=== PATIENT | female | born 1960 | race Caucasian/White ===

== ENCOUNTER 2020-05-16 12:17 | Inpatient (IN) ==
[2020-05-16] MEDS ORDERED: Naloxone 0.4 MG/ML INJ IVP PRN (15:51)
[2020-05-16] MEDS ORDERED: Ondansetron 4 MG/2 ML VIAL IVP PRN (15:51)
[2020-05-16] MEDS ORDERED: Isovue-370 500 ML BOTTLE IVP ONE (15:54)
[2020-05-16 17:19] LABS: Adenovirus Not Detected (Not Detect); Bordetella Pertussis Not Detected (Not Detect); Chlamydophila pneumoniae Not Detected (Not Detect); Coronavirus 229E Not Detected (Not Detect); Coronavirus HKU1 Not Detected (Not Detect); Coronavirus NL63 Not Detected (Not Detect); Coronavirus OC43 Not Detected (Not Detect); Human Metapneumovirus Not Detected (Not Detect); Human Rhinovirus/Enterovirus Not Detected (Not Detect); Influenza A Subtype 2009 H1 Not Detected (Not Detect); Influenza B Not Detected (Not Detect); Mycoplasma pneumoniae Not Detected (Not Detect); Parainfluenza Virus 1 Not Detected (Not Detect); Parainfluenza Virus 2 Not Detected (Not Detect); Parainfluenza Virus 3 Not Detected (Not Detect); Parainfluenza Virus 4 Not Detected (Not Detect); Respiratory Syncytial Virus Not Detected (Not Detect); SARS-CoV-2 Not Detected (Not Detect)
[2020-05-16] MEDS: *HR* Heparin 5,000 UNIT/ML VIAL SQ SCH (17:58)
[2020-05-16] MEDS: Piperacillin/Tazobactam 3.375 GM in 0.9 % Sodium Chloride Mini Bag 100 ML IVPB SCH ×2 (17:59→23:38)
[2020-05-16] MEDS: 0.9 % Sodium Chloride 1,000 ML IVC SCH (18:00)
[2020-05-16] MEDS: Vancomycin 1,250 MG/262.5 ML IV.SOLN IVPB SCH (18:11)
[2020-05-16] MEDS: Acetaminophen 325 MG TABLET PO PRN (19:57)
[2020-05-17 02:27] LABS: Basophils % 0.5 %; Hematocrit 40.6 % (35.3-44.9); Immature Granulocytes % 1.6 % (0-4); Lymphocytes # 0.5 K/mcL (0.6-4.6); Mean Corpuscular Hemoglobin 28.1 pg (28.0-33.3); Mean Corpuscular Volume 87.9 fL (83.0-100.0); Mean Platelet Volume 10.7 fL (9.4-12.4); Monocytes # 0.1 K/mcL (0.0-1.3); Monocytes % 2.7 %; Neutrophils # 3.1 K/mcL (1.6-8.9); Platelet Count 273 K/mcL (140-400); Red Blood Count 4.62 M/mcL (3.82-4.97); Red Cell Distribution Width 14.5 % (11.5-14.5); Segmented Neutrophils % 82.2 %; White Blood Count 3.8 K/mcL (4.3-11.1)
[2020-05-17 02:46] LABS: BUN/Creatinine Ratio 20 (6-26); Blood Urea Nitrogen 11 mg/dL (6-20); Calcium 8.1 mg/dL (8.6-10.3); Carbon Dioxide 22 mEq/L (23-29); Chloride 108 mEq/L (98-107); Glucose 170 mg/dL (70-105); Osmolality,Calculated 289 (280-300); Phosphorous 1.9 mg/dL (2.7-4.5); Potassium 3.9 mEq/L (3.5-5.1); Sodium 138 mEq/L (136-145); eGFR For African Americans > 60 (> 60); eGFR For Non-African Americans > 60 (> 60)
[2020-05-17] MEDS ORDERED: Benzonatate 100 MG CAPSULE PO ONE (03:00)
[2020-05-17] MEDS: Vancomycin 1,250 MG/262.5 ML IV.SOLN IVPB SCH ×2 (04:49→16:31)
[2020-05-17] MEDS: 0.9 % Sodium Chloride 1,000 ML IVC SCH (04:49)
[2020-05-17] MEDS: *HR* Heparin 5,000 UNIT/ML VIAL SQ SCH ×2 (04:50→16:24)
[2020-05-17] MEDS: lisinopriL 10 MG TABLET PO SCH (07:55)
[2020-05-17] MEDS ORDERED: Azithromycin 500 MG in 0.9 % Sodium Chloride 250 ML IVPB SCH (09:00)
[2020-05-17] MEDS: Acetaminophen 325 MG TABLET PO PRN ×2 (09:42→18:16)
[2020-05-17] MEDS: Piperacillin/Tazobactam 3.375 GM in 0.9 % Sodium Chloride Mini Bag 100 ML IVPB SCH ×2 (09:44→16:23)
[2020-05-17 10:23] LABS: INR 1.1; Prothrombin Time 12.6 Seconds (9.4-12.1)
[2020-05-17 10:26] LABS: Activated Partial Thrombo Time 25.5 Seconds (26.0-36.0)
[2020-05-17 10:33] LABS: C-Reactive Protein 111 mg/L (Less than 10); Lactate Dehydrogenase 250 Units/L (140-271)
[2020-05-17 10:52] LABS: Ferritin 698 ng/mL (10-120)
[2020-05-17] MEDS ORDERED: Dexamethasone 4 MG/ML VIAL IVP SCH (11:15)
[2020-05-17] MEDS: Furosemide 40 MG/4 ML VIAL IVP SCH (12:53)
[2020-05-17 15:15] LABS: ABG Base Excess 2 mEq/L (-2 to 3); ABG HCO3 24 mEq/L (21-27); ABG Oxygen Saturation 88 % (95-98); ABG PCO2 29 mmHg (35-45); ABG PH 7.52 pH Units (7.32-7.45); ABG PO2 48 mmHg (85-104); ABG TCO2 25 mEq/L (20-26)
[2020-05-17] MEDS: Ipratropium 1 PUFF INHALER IH SCH ×2 (15:33→22:14)
[2020-05-17 16:03] LABS: Bilirubin,Urine Negative (Negative); Blood,Urine Small (Negative); Clarity,Urine Clear (Clear); Color,Urine Light-Yellow (Yellow); Glucose,Urine (UA) Normal (Normal); Ketones,Urine Negative (Negative); Leukocyte Esterase,Urine Negative (Negative); Mucus,Urine Few per lpf (None-Few); Nitrite,Urine Negative (Negative); PH,Urine 6.5 pH Units (5.0-8.0); Protein,Urine 70 mg/dL (Neg-Trace); RBC,Urine 0-3 per hpf (0-3); Squamous Epithelial Cell,Urine Few per hpf (None-Few); Urobilinogen,Urine Normal (Normal); WBC,Urine 0-3 per hpf (0-3)
[2020-05-17] MEDS ORDERED: Furosemide 20 MG/2 ML VIAL IVP ONE (21:00)
[2020-05-18] MEDS: Piperacillin/Tazobactam 3.375 GM in 0.9 % Sodium Chloride Mini Bag 100 ML IVPB SCH (00:17)
[2020-05-18] MEDS: Acetaminophen 325 MG TABLET PO PRN ×2 (00:56→20:39)
[2020-05-18] MEDS: Ipratropium 1 PUFF INHALER IH SCH ×4 (03:47→22:23)
[2020-05-18] MEDS ORDERED: 0.9 % Sodium Chloride 250 ML ONE (05:11)
[2020-05-18] MEDS: *HR* Heparin 5,000 UNIT/ML VIAL SQ SCH (05:31)
[2020-05-18 07:13] LABS: Hematocrit 41.8 % (35.3-44.9); Hemoglobin 13.2 g/dL (11.5-15.4); Mean Corpuscular HGB Conc 31.6 g/dL (31.6-35.5); Mean Corpuscular Hemoglobin 27.8 pg (28.0-33.3); Mean Platelet Volume 10.5 fL (9.4-12.4); Platelet Count 335 K/mcL (140-400); Red Blood Count 4.75 M/mcL (3.82-4.97); Red Cell Distribution Width 14.4 % (11.5-14.5)
[2020-05-18 07:20] LABS: BUN/Creatinine Ratio 22 (6-26); Blood Urea Nitrogen 16 mg/dL (6-20); Calcium 8.5 mg/dL (8.6-10.3); Carbon Dioxide 27 mEq/L (23-29); Chloride 103 mEq/L (98-107); Glucose 167 mg/dL (70-105); Osmolality,Calculated 293 (280-300); Phosphorous 2.2 mg/dL (2.7-4.5); Potassium 3.1 mEq/L (3.5-5.1); Sodium 139 mEq/L (136-145); eGFR For African Americans > 60 (> 60); eGFR For Non-African Americans > 60 (> 60)
[2020-05-18 07:30] LABS: White Blood Count 8.3 K/mcL (4.3-11.1)
[2020-05-18] MEDS: lisinopriL 10 MG TABLET PO SCH (08:04)
[2020-05-18] MEDS: Azithromycin 250 MG TABLET PO SCH (08:05)
[2020-05-18] MEDS: Dexamethasone 4 MG/ML VIAL IVP SCH ×2 (08:06→20:09)
[2020-05-18] MEDS: Furosemide 40 MG/4 ML VIAL IVP SCH (08:10)
[2020-05-18] MEDS ORDERED: *HR* Enoxaparin 40 MG/0.4 ML SYRINGE SQ ONE (18:00)
[2020-05-19] MEDS: Ipratropium 1 PUFF INHALER IH SCH ×4 (03:49→21:39)
[2020-05-19] MEDS: Furosemide 40 MG/4 ML VIAL IVP SCH (09:35)
[2020-05-19] MEDS: Dexamethasone 4 MG/ML VIAL IVP SCH ×2 (09:35→21:04)
[2020-05-19] MEDS: Azithromycin 250 MG TABLET PO SCH (09:35)
[2020-05-19] MEDS: lisinopriL 10 MG TABLET PO SCH (09:35)
[2020-05-19 10:44] LABS: BUN/Creatinine Ratio 36 (6-26); Blood Urea Nitrogen 22 mg/dL (6-20); Calcium 9.1 mg/dL (8.6-10.3); Carbon Dioxide 26 mEq/L (23-29); Chloride 104 mEq/L (98-107); Glucose 266 mg/dL (70-105); Osmolality,Calculated 299 (280-300); Potassium 3.7 mEq/L (3.5-5.1); Sodium 138 mEq/L (136-145); eGFR For African Americans > 60 (> 60); eGFR For Non-African Americans > 60 (> 60)
[2020-05-19] MEDS: Acetaminophen 325 MG TABLET PO PRN (17:34)
[2020-05-19] MEDS ORDERED: *HR* Enoxaparin 40 MG/0.4 ML SYRINGE SQ SCH (18:00)
[2020-05-19] MEDS ORDERED: Furosemide 20 MG/2 ML VIAL IVP ONE (19:00)
[2020-05-19 21:45] LABS: SARS-CoV-2 by NAA DETECTED (Not Detect)
[2020-05-20] MEDS: Ipratropium 1 PUFF INHALER IH SCH ×4 (03:57→21:54)
[2020-05-20 06:15] LABS: INR 1.1; Prothrombin Time 12.5 Seconds (9.4-12.1)
[2020-05-20 06:26] LABS: BUN/Creatinine Ratio 43 (6-26); Blood Urea Nitrogen 30 mg/dL (6-20); Calcium 9.4 mg/dL (8.6-10.3); Carbon Dioxide 27 mEq/L (23-29); Chloride 103 mEq/L (98-107); Glucose 205 mg/dL (70-105); Lactate Dehydrogenase 287 Units/L (140-271); Magnesium 2.3 mg/dL (1.6-2.6); Osmolality,Calculated 304 (280-300); Potassium 3.9 mEq/L (3.5-5.1); Sodium 141 mEq/L (136-145); eGFR For African Americans > 60 (> 60); eGFR For Non-African Americans > 60 (> 60)
[2020-05-20 06:40] LABS: Ferritin 839 ng/mL (10-120)
[2020-05-20 07:39] LABS: Hematocrit 44.5 % (35.3-44.9); Hemoglobin 14.1 g/dL (11.5-15.4); Mean Corpuscular HGB Conc 31.7 g/dL (31.6-35.5); Mean Corpuscular Hemoglobin 27.8 pg (28.0-33.3); Mean Corpuscular Volume 87.8 fL (83.0-100.0); Mean Platelet Volume 10.9 fL (9.4-12.4); Platelet Count 411 K/mcL (140-400); Red Blood Count 5.07 M/mcL (3.82-4.97); Red Cell Distribution Width 14.4 % (11.5-14.5); White Blood Count 6.6 K/mcL (4.3-11.1)
[2020-05-20] MEDS: Azithromycin 250 MG TABLET PO SCH (07:57)
[2020-05-20] MEDS: lisinopriL 10 MG TABLET PO SCH (07:57)
[2020-05-20] MEDS: Dexamethasone 4 MG/ML VIAL IVP SCH ×2 (07:58→19:48)
[2020-05-20] MEDS: Furosemide 40 MG/4 ML VIAL IVP SCH (07:58)
[2020-05-20] MEDS: Acetaminophen 325 MG TABLET PO PRN ×2 (08:04→19:48)
[2020-05-20 09:34] LABS: C-Reactive Protein 18 mg/L (Less than 10)
[2020-05-20] MEDS ORDERED: 0.9 % Sodium Chloride 250 ML ONE (14:32)
[2020-05-20] MEDS: *HR* Enoxaparin 40 MG/0.4 ML SYRINGE SQ SCH (14:42)
[2020-05-21] MEDS: Acetaminophen 325 MG TABLET PO PRN ×2 (02:37→16:47)
[2020-05-21] MEDS: Ipratropium 1 PUFF INHALER IH SCH ×4 (03:31→21:58)
[2020-05-21] MEDS ORDERED: Mag Hydrox/Al Hydrox/Simeth 30 ML UDC PO PRN (04:34)
[2020-05-21] MEDS: *HR* Enoxaparin 40 MG/0.4 ML SYRINGE SQ SCH (04:44)
[2020-05-21] MEDS: Dexamethasone 4 MG/ML VIAL IVP SCH ×2 (08:56→22:07)
[2020-05-21] MEDS: Azithromycin 250 MG TABLET PO SCH (08:56)
[2020-05-21] MEDS: lisinopriL 10 MG TABLET PO SCH (08:56)
[2020-05-21] MEDS: Furosemide 40 MG/4 ML VIAL IVP SCH (08:57)
[2020-05-22] MEDS: Ipratropium 1 PUFF INHALER IH SCH ×2 (03:43→11:29)
[2020-05-22 05:06] VITALS: BP 124/75
[2020-05-22] MEDS: *HR* Enoxaparin 40 MG/0.4 ML SYRINGE SQ SCH (05:59)
[2020-05-22 09:07] LABS: BUN/Creatinine Ratio 44 (6-26); Blood Urea Nitrogen 30 mg/dL (6-20); Calcium 9.1 mg/dL (8.6-10.3); Carbon Dioxide 28 mEq/L (23-29); Chloride 101 mEq/L (98-107); Glucose 209 mg/dL (70-105); Osmolality,Calculated 302 (280-300); Potassium 3.7 mEq/L (3.5-5.1); Sodium 140 mEq/L (136-145); eGFR For African Americans > 60 (> 60); eGFR For Non-African Americans > 60 (> 60)
[2020-05-22] MEDS: Dexamethasone 4 MG/ML VIAL IVP SCH (10:12)
[2020-05-22] MEDS: Furosemide 40 MG/4 ML VIAL IVP SCH ×2 (10:12→10:22)
[2020-05-22] MEDS: lisinopriL 10 MG TABLET PO SCH (10:13)
[2020-05-22] MEDS: Azithromycin 250 MG TABLET PO SCH (10:13)
== END 2020-05-22 13:10 | disposition home or self-care (01) | DRG 871 ==
LOC: 2ANU → SUATTDRO 13:38 → 2ANU 05-17 13:52 → SUATTDRO 05-17 18:37 → 2NENU 05-17 20:09
PROVIDERS: ADMIT Internal Medicine; ATTEND Internal Medicine